=== PATIENT | male | born 1990 | race Hispanic/Latino ===

== ENCOUNTER 2024-06-09 16:12 | Emergency (ER) | payer MEDICAID ==
[~2024-06-09] VITALS: Ht 172.7 cm; Wt 86.2 kg
[2024-06-09 16:15] VITALS: TEMP 97.2
--- NOTE | 2024-06-09 16:20 | NUR ---
PT JUST NOW PLACED IN MY ED BED 15
[2024-06-09 16:49] LABS: BASOPHILS # (AUTO) 0.08 K/uL (0.00-0.20); BASOPHILS % (AUTO) 0.5 % (0.0-5.0); EOSINOPHILS # (AUTO) 0.14 K/uL (0.00-0.70); EOSINOPHILS % (AUTO) 0.9 % (0.0-8.0); IMMATURE GRANULOCYTE ABSOLUTE 0.08 K/uL (0-1); LYMPHOCYTES % (AUTO) 12.5 % (21.0-51.0); MEAN CORPUSCULAR HEMOGLOBIN 27.2 pg (27.0-33.0); MEAN CORPUSCULAR HGB CONC 32.9 g/dL (32.0-36.0); MEAN CORPUSCULAR VOLUME 82.6 fL (79-99); MONOCYTES # (AUTO) 0.5 K/uL (0.1-1.0); MONOCYTES % (AUTO) 3.4 % (3.0-13.0); NEUTROPHILS # (AUTO) 12.9 K/uL (1.8-7.7); NEUTROPHILS % (AUTO) 82.2 % (40.0-77.0); PLATELET COUNT (AUTO) 305 K/uL (130-400); RED BLOOD CELL COUNT(AUTO) 5.93 MIL/uL (4.50-6.20); RED CELL DISTRIBUTION WIDTH 13.2 % (11.0-15.5); WHITE BLOOD COUNT (AUTO) 15.7 K/uL (4.8-10.8)
[2024-06-09 16:51] LABS: APPEARANCE,URINE TURBID (CLEAR); BILIRUBIN,URINE NEGATIVE (NEGATIVE); COLOR,URINE LIGHT-ORANGE (YELLOW); GLUCOSE, URINE (UA) NEGATIVE (NEGATIVE); KETONES,URINE NEGATIVE (NEGATIVE); LEUKOCYTE ESTERASE ,URINE NEGATIVE Leu/uL (NEGATIVE); NITRATE,URINE NEGATIVE (NEGATIVE); OCCULT BLOOD,URINE LARGE (NEGATIVE); PH,URINE 5.5 (5.0-8.0); PROTEIN,URINE 50 mg/dL (NEGATIVE); UROBILINOGEN,URINE 0.2 mg/dL (0.2-1.0)
[2024-06-09 16:58] LABS: CREATININE 1.3 mg/dL (0.5-1.3); POTASSIUM 4.3 mmol/L (3.5-5.1)
[2024-06-09 17:03] LABS: ALBUMIN 4.2 g/dL (3.5-5.0); BILIRUBIN,TOTAL 0.5 mg/dL (0.2-1.0); TOTAL PROTEIN, SERUM 8.2 g/dL (6.0-8.3)
[2024-06-09 17:03] LABS: BACTERIA,URINE RARE /HPF (None Seen); MUCUS,URINE RARE LPF (None Seen); RBC,URINE 51-100 /HPF (0-1); UNCLASSIFIED CRYSTAL 219 /HPF (None Seen); WBC,URINE >100 /HPF (0-1); YEAST,URINE BUDDING MOD /HPF (None Seen)
[2024-06-09] MEDS: 0.9%NACL 1000ML 1,000 ML IV ONE (17:14)
[2024-06-09] MEDS: ondanSETRON 4MG INJ IVP ONE (17:14)
[2024-06-09] MEDS: ketOROlac 30MG VIAL (30MG/ML) IVP ONE (17:14)
--- NOTE | 2024-06-09 17:17 | NUR ---
PT JUST TAKEN TO CT SCAN
--- NOTE | 2024-06-09 17:30 | HMCIMG ---
CT ABDOMEN/PELVIS W/O CONTRAST INDICATION: Right flank pain TECHNIQUE: CT ABDOMEN/PELVIS W/O CONTRAST. Oral contrast was not given. Coronal and sagittal reformats were performed. CT was performed with one or more of the following dose reduction techniques: Automated exposure control, adjustment of the mA and/or kV according to the patient's size, or use of the iterative reconstruction technique. Comparison: None. FINDINGS: The noncontrast nature this study limits evaluation of abdominal viscera. No pulmonary consolidation or pleural effusion is seen. There is hepatic steatosis. No calcified gallstone is seen. The spleen, pancreas, and adrenal glands are within normal limits. Mild right hydronephrosis and hydroureter with 5 mm calculus in the distal ureter/UVJ. No left hydronephrosis. Reproductive organs are grossly within normal limits for patient's age. No bowel obstruction identified. Appendix is normal in caliber. Visualized aorta is normal in caliber. No acute osseous findings. IMPRESSION: Mild right hydronephrosis and hydroureter with 5 mm calculus in the distal ureter/UVJ.
--- NOTE | 2024-06-09 17:34 | NUR ---
PT RUTURNED FROM CT SCAN. HAD A BOUT OF WRETCHING
[2024-06-09] MEDS: tamSULOsin HCL 0.4 MG CAP.ER.24H PO ONE (17:56)
[2024-06-09] MEDS: morPHINE 4 MG SYG IVP ONE (17:56)
[2024-06-09] MEDS ORDERED: HYDR-4060 PO (18:00)
[2024-06-09] MEDS ORDERED: TAMS-1 PO (18:05)
[2024-06-09] MEDS ORDERED: ONDA-243 PO (18:05)
--- NOTE | 2024-06-09 18:07 | ERN ---
General Chief Complaint: Flank Pain Stated Complaint: FLANK PAIN Time Seen by MD: 16:18 Time Seen by Midlevel: 16:20 Source: patient History of Present Illness Initial Comments 33-year-old male who presents to the ED due to right flank pain onset today at 11:00 a.m. when he woke up. The patient reports three episodes of vomiting but denies any fever, abdominal pain, dysuria or further associated symptoms. Denies significant past medical history. Allergies: Coded Allergies: No Known Drug Allergies (Unverified Allergy, Unknown, 06/09/24) Home Meds Active Scripts Ondansetron (Ondansetron Odt) 4 Mg Tab.rapdis, 4 MG PO TID for 3 Days, #9 TAB Prov:DOUGLAS BRAR 06/09/24 Tamsulosin HCl (Flomax) 0.4 Mg Cap.er.24h, 0.4 MG PO DAILY for 7 Days, #7 CAPSULE.DR Prov:DOUGLAS BRAR 06/09/24 Hydrocodone/Acetaminophen (Hydrocodon-Acetaminophen 5-325) 5 Mg-325 Mg Tablet, 1 TAB PO QID PRN for pain for 5 Days, #20 TAB 0 Refills Prov:MORELIA OLIVEIRA DO 06/09/24 Past Medical History Past Medical History: No Pertinent History Past Surgical History: None ROS Dictation Constitutional: Negative for fever,chills, and weight loss Eyes: Negative for injury, pain,redness, and discharge ENT: Negative for injury,pain or swelling Cardiovascular: Negative for chest pain, palpitations, and edema Respiratory: Negative for shortness of breath, cough, and wheezing, Abdomen/GI: Negative for abdominal pain, nausea, vomiting, diarrhea, and constipation Back: Positive for right flank pain Negative for injury : Negative for painful urination, bleeding or discharge MS/Extremity: Negative for injury and deformity Skin: Negative for rash, and discoloration Neuro: Negative for headache, weakness, numbness, tingling, and seizure Psych: Negative for suicide ideation, homicidal ideation, and hallucinations Physical Exam Physical Exam Dictation General: awake, alert, no acute distress Head/Face: Normocephalic, atraumatic Eyes: normal conjunctiva Cardiovascular: RRR, normal S1/S2,, no JVD Respiratory: CTAB, no respiratory distress, No rales or wheezes Abdomen: Soft, non-tender, non-distended, normal bowel sounds, no guarding or rebound. Back: Mild right CVA tenderness Skin: Warm, dry, normal turgor, no rash MS/Extremity: Pulses equal, no cyanosis, neurovascular intact, FROM Neuro: COAx4, GCS 15, normal gait, Psych: Normal behavior, mood, and affect normal Results Laboratory and Microbiology Lab and Micro Result Laboratory Tests Test 06/09/24 15:44 06/09/24 16:21 White Blood Count 15.7 K/uL (4.8-10.8) H Red Blood Count 5.93 MIL/uL (4.50-6.20) Hemoglobin 16.1 g/dL (14.0-18.0) Hematocrit 49.0 % (42-54) Mean Corpuscular Volume 82.6 fL (79-99) Mean Corpuscular Hemoglobin 27.2 pg (27.0-33.0) Mean Corpuscular Hemoglobin Concent 32.9 g/dL (32.0-36.0) Red Cell Distribution Width 13.2 % (11.0-15.5) Platelet Count 305 K/uL (130-400) Mean Platelet Volume 8.8 fL (7.5-10.5) Immature Granulocyte % (Auto) 0.5 % (0-1) Neutrophils (%) (Auto) 82.2 % (40.0-77.0) H Lymphocytes (%) (Auto) 12.5 % (21.0-51.0) L Monocytes (%) (Auto) 3.4 % (3.0-13.0) Eosinophils (%) (Auto) 0.9 % (0.0-8.0) Basophils (%) (Auto) 0.5 % (0.0-5.0) Neutrophils # (Auto) 12.9 K/uL (1.8-7.7) H Lymphocytes # (Auto) 2.0 K/uL (1.0-4.8) Monocytes # (Auto) 0.5 K/uL (0.1-1.0) Eosinophils # (Auto) 0.14 K/uL (0.00-0.70) Basophils # (Auto) 0.08 K/uL (0.00-0.20) Absolute Immature Granulocyte (auto 0.08 K/uL (0-1) Nucleated Red Blood Cells 0.0 % (0.0-0.19) Sodium Level 139 mmol/L (136-145) Potassium Level 4.3 mmol/L (3.5-5.1) Chloride Level 103 mmol/L (101-111) Carbon Dioxide Level 28 mmol/L (21-32) Blood Urea Nitrogen 13 mg/dL (7-18) Creatinine 1.3 mg/dL (0.5-1.3) Glomerular Filtration Rate Calc 75 mL/min (>90) Random Glucose 133 mg/dL (70-105) H Lactic Acid Level 2.8 mmol/L (0.8-2.5) H Total Calcium 9.4 mg/dL (8.5-10.1) Total Bilirubin 0.5 mg/dL (0.2-1.0) Aspartate Amino Transf (AST/SGOT) 17 U/L (10-37) Alanine Aminotransferase (ALT/SGPT) 28 U/L (12-78) Alkaline Phosphatase 111 U/L (50-136) Total Protein 8.2 g/dL (6.0-8.3) Albumin 4.2 g/dL (3.5-5.0) Urine Color LIGHT-ORANGE (YELLOW) Urine Appearance TURBID (CLEAR) Urine pH 5.5 (5.0-8.0) Urine Specific [place] 1.028 (1.001-1.031) Urine Protein 50 mg/dL (NEGATIVE) H Urine Glucose (UA) NEGATIVE mg/dL (NEGATIVE) Urine Ketones NEGATIVE mg/dL (NEGATIVE) Urine Occult Blood LARGE (NEGATIVE) H Urine Nitrate NEGATIVE (NEGATIVE) Urine Bilirubin NEGATIVE mg/dL (NEGATIVE) Urine Urobilinogen 0.2 mg/dL (0.2-1.0) Urine Leukocyte Esterase NEGATIVE [place]/uL Urine RBC 51-100 /HPF (0-1) H Urine WBC >100 /HPF (0-1) H Urine Other Crystals (Auto) 219 /HPF (None Seen) Urine Bacteria RARE /HPF (None Seen) Urine Yeast MOD /HPF (None Seen) Labs Reviewed?: Yes EKG/XRAY/US/CT/MRI CT Scan Comment REASON: Right flank pain ORDERING PHYSICIAN: DOUGLAS BRAR PROCEDURE: ABD PEL WO - CT ABDOMEN/PELVIS W/O CONTRAST CT ABDOMEN/PELVIS W/O CONTRAST INDICATION: Right flank pain TECHNIQUE: CT ABDOMEN/PELVIS W/O CONTRAST. Oral contrast was not given. Coronal and sagittal reformats were performed. CT was performed with one or more of the following dose reduction techniques: Automated exposure control, adjustment of the mA and/or kV according to the patient's size, or use of the iterative reconstruction technique. Comparison: None. FINDINGS: The noncontrast nature this study limits evaluation of abdominal viscera. No pulmonary consolidation or pleural effusion is seen. There is hepatic steatosis. No calcified gallstone is seen. The spleen, pancreas, and adrenal glands are within normal limits. Mild right hydronephrosis and hydroureter with 5 mm calculus in the distal ureter/UVJ. No left hydronephrosis. Reproductive organs are grossly within normal limits for patient's age. No bowel obstruction identified. Appendix is normal in caliber. Visualized aorta is normal in caliber. No acute osseous findings. IMPRESSION: Mild right hydronephrosis and hydroureter with 5 mm calculus in the distal ureter/UVJ. MDM MDM: Differential diagnosis: Rationale: 33-year-old male who presents to the ED due to right flank pain onset today at 11:00 a.m. when he woke up. The patient reports three episodes of vomiting but denies any fever, abdominal pain, dysuria or further associated symptoms. Denies significant past medical history. Labs obtained are indicating mild elevation of WBCs and lactic acid therefore patient received IV fluids in the ED. Ketorolac, morphine, tamsulosin and Zofran administered in the ED. CT abdomen and pelvis indicates a 5 mm stone at the right distal ureter / UVJ. Due to pain control and no indication of kidney or urine infection patient is stable for discharge and follow up outpatient with PCP and urologist. Hydrocodone, Zofran, tamsulosin prescribed for outpatient treatment. Patient and mother were educated on findings and diagnosis. Return to the ED if any worsening symptoms. Patient mother verbalized understanding. There are no social concerns with this patient. I independently interpreted the test that were performed, results were reviewed by me and considered findings on radiology if ordered. Medical management and examination interpretation discussions were had by me with other qualified healthcare professionals as indicated for the patient's care. ED Course Orders Procedure Category Date Status Time Cbc With Differential LAB 06/09/24 Complete 16:28 Urinalysis LAB 06/09/24 Complete W/Microscopic 16:28 Ct Abdomen/Pelvis W/O CT 06/09/24 Resulted Contrast 16:34 Comprehensive LAB 06/09/24 Complete Metabolic Panel 16:34 Ondansetron 4mg Inj PHA 06/09/24 Complete (Zofran 4mg Inj) 17:00 Lactic Acid LAB 06/09/24 Complete 16:53 Ketorolac PHA 06/09/24 Complete Tromethamine 30mg/Ml 17:00 0.9%Nacl 1000ml (Ns PHA 06/09/24 Complete 1000ml) 17:00 Culture Urine CHAMP 06/09/24 Complete 17:03 Tamsulosin Hcl PHA 06/09/24 Complete (Flomax) 18:00 Morphine 4mg Syg PHA 06/09/24 Complete (Morphine 4mg Syg) 18:00 Vital Signs Date Time Temp Pulse Resp B/P (MAP) Pulse Ox O2 Delivery O2 Flow Rate FiO2 06/09/24 18:30 64 17 133/85 100 Room Air* 0 21 06/09/24 16:15 97.2 74 18 139/96 99 Nasal Cannula 0 DX & DISP Disposition: Discharge Departure Impression: Primary Impression: Calculus of distal ureter Condition: Stable Scripts Ondansetron (Ondansetron Odt) 4 Mg Tab.rapdis 4 MG PO TID for 3 Days, #9 TAB Prov: DOUGLAS BRAR 06/09/24 Tamsulosin HCl (Flomax) 0.4 Mg Cap.er.24h 0.4 MG PO DAILY for 7 Days, #7 CAPSULE. Prov: DOUGLAS BRAR 06/09/24 Hydrocodone/Acetaminophen (Hydrocodon-Acetaminophen 5-325) 5 Mg-325 Mg Tablet 1 TAB PO QID PRN for pain for 5 Days, #20 TAB 0 Refills Prov: MORELIA OLIVEIRA DO 06/09/24 Additional Instructions: Discharge home. Rest. Follow up with primary care DrHeron in 24 hours. Return to the ER for any acute changes or worsening symptoms. If any medications were prescribed take as directed. Okay to continue home medications unless otherwise discussed during your visit in the emergency room today. Patient was also advised to follow-up with primary care physician in 1 to 2 days for continued monitoring. Referrals: NONE (PCP) DANYEL TORRES MD, MICHAEL J MD I participated in the following activities of this patient's care: For this patient encounter, I reviewed the PA or [employer] documentation, treatment plan, and medical decision making. I did not have [id number] time with this patient. I will sign as the reviewing DrHeron And agree with the treatment plan and disposition. DOUGLAS BRAR Jun 09, 2024 18:07 MORELIA OLIVEIRA DO Jun 14, 2024 07:39
[2024-06-09 18:30] VITALS: BP 133/85; PULSE 64; RESP 17; O2SAT 100
== END 2024-06-09 18:34 | disposition home or self-care (01) ==
LOC: EDH 16:12
DX: N13.2 Hydronephrosis with renal and ureteral calculous obstruction (principal); Z79.899 Other long term (current) drug therapy
CPT/HCPCS: 99285; 74176; 96374; 96375; 96361; 80053; 85025; 87086 ×2; 87186; 83605; 81001; 36415; J7030; J2405; J2270; J1885